=== PATIENT | female | born 1975 | race Hispanic/Latino ===

== ENCOUNTER → 2024-06-28 | Outpatient (REF) | payer OTHER ==
[~2024-06-28] MED LIST: MULTI-VITAMIN1 EACH PO; VITAMIN C1000 MG PO; VITAMIN D31250 MCG PEG
== END ==
LOC: US 07:19
PROVIDERS: ATTEND Nurse Practitioner
DX: Z12.11 Encounter for screening for malignant neoplasm of colon (principal); R74.8 Abnormal levels of other serum enzymes; Z90.3 Acquired absence of stomach [part of]
CPT/HCPCS: 76700

== ENCOUNTER → 2024-07-08 | Outpatient (REF) | payer OTHER ==
[2024-07-08] MEDS: LACTATED RINGER'S 1,000 ML ONE (08:12)
== END | disposition home or self-care (01) ==
LOC: LAB 05:00 → OR 10:00 → EDSTATUS 12:00
PROVIDERS: ATTEND Internal Medicine Gastroenterology
DX: R10.10 Upper abdominal pain, unspecified (principal); R14.0 Abdominal distension (gaseous); K59.00 Constipation, unspecified; Z53.9 Procedure and treatment not carried out, unspecified reason
CPT/HCPCS: 81025; J7121